=== PATIENT | female | born 1965 | race Two or more races ===

== ENCOUNTER 2018-02-03 16:55 | Inpatient (IN) | payer OTHER ==
[~2018-02-03] VITALS: Ht 167.6 cm; Wt 70.3 kg
[2018-02-03] MEDS ORDERED: SIDEROL TABLET1 EACH (17:05)
[2018-02-05] MEDS ORDERED: IRON1TAB4 PO (08:58)
== END 2018-02-05 09:36 | DRG 812 ==
LOC: ER 16:55 → SEC-K 23:03 → OB/GYN 23:03
PROC: BU4CZZZ Ultrasonography of Uterus and Ovaries (ICD-10-PCS; 2018-02-03)
PROC: 30233N1 Transfusion of Nonautologous Red Blood Cells into Peripheral Vein, Percutaneous Approach (ICD-10-PCS; principal; 2018-02-04)
DX: D50.0 Iron deficiency anemia secondary to blood loss (chronic) (principal); N93.8 Other specified abnormal uterine and vaginal bleeding

== ENCOUNTER 2018-03-13 18:17 | Inpatient (IN) | payer OTHER ==
[~2018-03-13] VITALS: Ht 167.6 cm; Wt 70.3 kg
[~2018-03-13 18:17] MED LIST: IRON1TAB4 PO; SIDEROL TABLET1 EACH
[2018-04-08] MEDS ORDERED: CODE1TAB37 PO (10:04)
== END 2018-04-08 11:05 | disposition home or self-care (01) | DRG 743 ==
LOC: OB/GYN 04-05 05:45 → O/R 04-05 05:45 → SURH 04-05 08:00 → OB/GYN 04-05 16:31
PROVIDERS: Obstetrics & Gynecology
PROC: 0UT20ZZ Resection of Bilateral Ovaries, Open Approach (ICD-10-PCS; 2018-04-05)
PROC: 0TJB8ZZ Inspection of Bladder, Via Natural or Artificial Opening Endoscopic (ICD-10-PCS; 2018-04-05)
PROC: 0UT90ZZ Resection of Uterus, Open Approach (ICD-10-PCS; principal; 2018-04-05 08:45)
PROC: 0UT70ZZ Resection of Bilateral Fallopian Tubes, Open Approach (ICD-10-PCS; 2018-04-05 08:45)
DX: D25.1 Intramural leiomyoma of uterus (principal); D25.2 Subserosal leiomyoma of uterus; N72 Inflammatory disease of cervix uteri; D27.1 Benign neoplasm of left ovary